=== PATIENT | male | born 1960 | race Caucasian/White ===

== ENCOUNTER 2018-08-13 00:33 | Outpatient (CLI) | payer OTHER, SELFPAY ==
[2018-08-13 10:58] LABS: CREATININE 1.16 mg/dL (0.70-1.30); Cholesterol 180 mg/dL (50-200); HDL Cholesterol 40 mg/dL (40-60); LDL CHOLESTEROL 125 mg/dL (<100); Potassium 4.3 mmol/L (3.5-5.1); Triglyceride 86 mg/dL (30-150)
[2018-08-15 04:37] LABS: Hemoglobin A1C 5.7 % (4.5-6.2)
== END 2018-08-13 00:53 ==
PROVIDERS: PCP Family Medicine; Visit Provider Family Medicine
DX: E78.5 Hyperlipidemia, unspecified (principal); E74.39 Other disorders of intestinal carbohydrate absorption; E83.42 Hypomagnesemia; I10 Essential (primary) hypertension
CPT/HCPCS: 36415; 80061; 83721; 82565; 83036; 83735; 84132

== ENCOUNTER 2019-06-23 08:57 | Emergency (ER) | payer OTHER, SELFPAY ==
[2019-06-23 08:58] VITALS: BP 138/85; PULSE 84; RESP 16; TEMP 36.7; O2SAT 97
--- NOTE | 2019-06-23 09:21 | W.ED.GENAD ---
Discharge Plan Disposition Patient Disposition: HOME Condition: Stable Discharge Details Chief Complaint: FlankPain Clinical Impression: Left flank pain Primary Care Provider: Ajay Zhu ED Provider: Susy Dean Home Meds and New Rx's Prescriptions: New methocarbamol [Robaxin-750] 750 mg tablet 750 mg PO QID PRN (Reason: pain) Qty: 10 RF: 0 Continued amlodipine 5 mg tablet 5 mg PO DAILY Qty: 90 RF: 4 spironolactone 25 mg tablet 25 mg PO DAILY Qty: 90 RF: 3 amoxicillin 875 mg tablet 875 mg PO BID Qty: 14 RF: 0 pantoprazole 40 mg tablet,delayed release (DR/EC) 40 mg PO DIRECTED RF: 0 hydrochlorothiazide 12.5 mg tablet 12.5 mg PO DAILY Qty: 90 RF: 3 lisinopril 30 mg tablet 30 mg PO DAILY Qty: 90 RF: 3 Discharge Instructions Instructions: Flank Pain (ED) Additional Instructions: Alternate Tylenol and Motrin as needed and directed for pain. Use [id number] Lidoderm patches as directed for pain. Take the muscle relaxers as needed and directed for pain. Call your primary care doctor's office today to schedule a follow-up appointment for reevaluation next week. Return to the emergency department if you develop any worsening or new concerning symptoms. Discharge Data Discharge Date/Time-TO BE ENTERED AT DEPARTURE: 06/23/19 11:51 Discharge Physician: Susy Dean Medical Decision Making 0900 -- 59-year-old male with a history of hypertension and GERD who presents with left-sided flank pain for the past 1 to 2 months, worse since this morning. He admits to an injury several weeks ago when she was hit by a hard object in his left flank at work but states he did not have pain in this area initially. He also states he had pain in this area 2 months ago while working outside. He states he also lifts frequent heavy objects. He states the pain is somewhat improved with moving and walking and after bowel movements. He denies fever, nausea, vomiting, urinary symptoms, diarrhea, leg pain or weakness, no cauda equina symptoms. Abdomen soft nontender. Left lateral abdomen and left lower backend developer to palp. No rash. No focal deficits. Differential diagnosis includes kidney stone, muscle strain, sciatica, spinal stenosis, arthritis, shingles. Will place an IV give a dose of Toradol, Lidoderm patch, screening labs, urinalysis and CT renal colic. 1125 --labs and imaging reviewed and unremarkable. Normal white blood cell count, normal electrolytes, normal lipase, negative urine, CT negative for acute findings. Patient denies any relief of his symptoms with meds. Patient states he does feel good to go home. Discussed with patient that his symptoms could be musculoskeletal including sprain/strain, spinal stenosis, sciatica, herniated disc or possibly shingles with rash that has not yet developed. We will send home with a prescription for muscle relaxers. He is advised to take ibuprofen 600 mg every 6 hours, alternate ice and heat, follow-up with his primary care doctor next week and to return to the ER with new or worsening symptoms. Medical Records Medical records reviewed: Yes I reviewed the patient's medical records. Imaging Data Radiologic Study: Radiologist's impression: CT RENAL COLIC WO CLINICAL HISTORY: L flank pain, r/o renal stone. TECHNIQUE: The examination was carried out according to the usual protocol. COMPARISON: No exams were available for comparison FINDINGS: Non-obstructing left nephrolithiasis is demonstrated. There is no evidence of hydronephrosis. There is no evidence of ureterectasis or ureterolithiasis. The right kidney is unremarkable. The adrenals are intact, the visualized portions of the liver and spleen appear unremarkable. There is no evidence of bowel obstruction and nothing to suggest an acute appendix. There is no evidence of free air or fluid in the intraperitoneal space. The bladder is unremarkable. Prostate is somewhat enlarged and contains small calcifications. No acute bony abnormality is evident. IMPRESSION: Nonobstructing left nephrolithiasis is demonstrated. There is no evidence of ureterectasis or ureterolithiasis. Lab Data Lab results reviewed: Yes I reviewed the patient's lab results. Labs: Laboratory Tests Range/Units 06/23/19 06/23/19 06/23/19 09:15 09:56 09:56 WBC (4.4-10.8) k/cumm 7.77 RBC (4.50-6.00) m/cumm 4.53 Hgb (13.5-17.5) g/dL 13.2 L Hct (40.0-50.0) % 38.0 L MCV (80-95) fL 83.9 MCH (27.0-33.0) pg 29.1 MCHC (32.0-36.0) g/dL 34.7 RDW (11.8-14.1) % 12.5 Plt Count (130-400) x1000/uL 266 MPV (8.0-11.0) fL 9.6 Immature Gran % 1.3 Neutrophils % 66.4 Lymphocytes % 23.9 Monocytes % 6.6 Eosinophils % 1.4 Basophils % 0.4 Absolute Neutrophils (1.2-6.7) k/cumm 5.16 Absolute Lymphocytes (1.2-3.4) k/cumm 1.86 Absolute Monocytes (0.11-0.7) k/cumm 0.51 Absolute Eosinophils (0.0-0.7) k/cumm 0.11 Absolute Basophils (0.0-0.2) k/cumm 0.03 Sodium Cancelled Potassium Cancelled Chloride Cancelled Carbon Dioxide Cancelled Anion Gap Cancelled BUN Cancelled Creatinine Cancelled Estimated GFR/1.73 m2 Cancelled Glucose Cancelled Calcium Cancelled Total Bilirubin Cancelled AST Cancelled ALT Cancelled Alkaline Phosphatase Cancelled Total Protein Cancelled Albumin Cancelled Lipase Cancelled Urine Color (Yellow) Yellow Urine Clarity (Clear) Clear Urine pH (5-8) 6.5 Ur Specific [place] (1.005-1.025) 1.015 Urine Protein (Negative) mg/dL Negative Urine Ketones (Negative) mg/dL Negative Urine Blood (Negative) Negative Urine Nitrite (Negative) Negative Urine Bilirubin (Negative) Negative Urine Urobilinogen (Up TO 0.2) EU/dL 0.2 Ur Leukocyte Esterase (Negative) Negative Urine Glucose (Negative) mg/dL Negative Range/Units 06/23/19 10:58 WBC (4.4-10.8) k/cumm RBC (4.50-6.00) m/cumm Hgb (13.5-17.5) g/dL Hct (40.0-50.0) % MCV (80-95) fL MCH (27.0-33.0) pg MCHC (32.0-36.0) g/dL RDW (11.8-14.1) % Plt Count (130-400) x1000/uL MPV (8.0-11.0) fL Immature Gran % Neutrophils % Lymphocytes % Monocytes % Eosinophils % Basophils % Absolute Neutrophils (1.2-6.7) k/cumm Absolute Lymphocytes (1.2-3.4) k/cumm Absolute Monocytes (0.11-0.7) k/cumm Absolute Eosinophils (0.0-0.7) k/cumm Absolute Basophils (0.0-0.2) k/cumm Sodium 139 Potassium 4.5 Chloride 105 Carbon Dioxide 24.4 Anion Gap 9.6 BUN 26 H Creatinine 1.22 Estimated GFR/1.73 m2 >= 60.00 Glucose 121 H Calcium 9.0 Total Bilirubin 0.4 AST 17 ALT 35 Alkaline Phosphatase 49 Total Protein 7.3 Albumin 3.8 Lipase 63 L Urine Color (Yellow) Urine Clarity (Clear) Urine pH (5-8) Ur Specific [place] (1.005-1.025) Urine Protein (Negative) mg/dL Urine Ketones (Negative) mg/dL Urine Blood (Negative) Urine Nitrite (Negative) Urine Bilirubin (Negative) Urine Urobilinogen (Up TO 0.2) EU/dL Ur Leukocyte Esterase (Negative) Urine Glucose (Negative) mg/dL HPI General Mode of arrival: ambulatory. Date/Time Provider Initiated Documentation: 06/23/19 09:01. Limitations to Documentation: no limitations. Information obtained by: patient. HPI Narrative: Patient is a 59-year-old male with a history of GERD and hypertension who presents with left lower back/flank pain for the past 3 weeks. He states he had similar pain occurring 2 months ago but this improved and then returned a few weeks ago. He does admit to an injury at work in which he was hit by a hard object to his left lower back but states he did not have any pain at that time and not for another 3 weeks. He states the pain is better when he is getting up and walking and with bowel movements. He denies any fever, nausea, vomiting, urinary symptoms, diarrhea, leg pain or weakness, saddle anesthesia, bowel or bladder incontinence, abdominal pain. He denies any rash to his left lower back. Related Data Home Medications Medication Instructions Recorded Confirmed hydrochlorothiazide 12.5 mg tablet 12.5 mg PO DAILY #90 tab-cap 12/16/18 06/23/19 lisinopril 30 mg tablet 30 mg PO DAILY #90 tab-cap 12/16/18 06/23/19 pantoprazole 40 mg tablet,delayed 40 mg PO DIRECTED tab-cap 12/16/18 06/23/19 release amlodipine 5 mg tablet 5 mg PO DAILY #90 tab-cap 06/21/19 06/23/19 amoxicillin 875 mg tablet 875 mg PO BID #14 tab 06/21/19 06/23/19 spironolactone 25 mg tablet 25 mg PO DAILY #90 tab-cap 06/21/19 06/23/19 methocarbamol [Robaxin-750] 750 mg PO QID PRN #10 tab 06/23/19 Previous Rx's Medication Instructions Recorded hydrochlorothiazide 12.5 mg tablet 12.5 mg PO DAILY #90 tab-cap 12/16/18 lisinopril 30 mg tablet 30 mg PO DAILY #90 tab-cap 12/16/18 amlodipine 5 mg tablet 5 mg PO DAILY #90 tab-cap 06/21/19 amoxicillin 875 mg tablet 875 mg PO BID #14 tab 06/21/19 spironolactone 25 mg tablet 25 mg PO DAILY #90 tab-cap 06/21/19 methocarbamol [Robaxin-750] 750 mg PO QID PRN #10 tab 06/23/19 Allergies Allergy/AdvReac Type Severity Reaction Status Date / Time erythromycin base AdvReac Nausea/vomi Unverified 06/23/19 09:06 ting General Stated Complaint: FlankPain LUKAS: 3 Review of Systems Review of Systems ROS Unobtainable: All systems reviewed & are unremarkable except as noted in HPI and below Constitutional Constitutional: Reports as per HPI, Denies chills and Denies fever(s) Eyes Eyes: Denies blurry vision ENT Ears, Nose, Mouth, and Throat: Denies dizziness, Denies sore throat and Denies throat swelling Cardiovascular Cardiovascular: Denies chest pain and Denies dyspnea Respiratory Respiratory: Denies cough and Denies dyspnea Gastrointestinal Gastrointestinal: Denies abdominal pain, Denies diarrhea and Denies vomiting Genitourinary Genitourinary: Denies hematuria, Denies dysuria and Reports flank pain Musculoskeletal Musculoskeletal: Reports back pain and Denies numbness Integumentary/Breasts Skin/Breast: Denies lesions and Denies rash Neurologic Neurologic: Denies dizziness, Denies focal weakness and Denies numbness Allergic/Immunologic Allergic/Immunologic: Denies throat swelling [facility] Medical History Gastroesophageal reflux disease with esophagitis (Inactive) Hypertension (Inactive) Surgical History Appendectomy Family History Mother Diabetes Essential hypertension Father , AGE 84 Essential hypertension Stroke Brother Diabetes Essential hypertension Sister No problems noted. Son No problems noted. Daughter No problems noted. Daughter No problems noted. Daughter No problems noted. Social History Smoking/Tobacco Use Status: Never Alcohol Intake: current Alcohol Intake frequency: holidays/special occasions only Alcohol type: beer Substance use type: does not use current occupation: LEADMAN Pets and animals: Yes Pets and animals: dog(s) Frequency: does not exercise Lisbeth/Hoahaoism: No preference Special lisbeth needs: No Do you feel safe at home: Yes Do you feel safe in your relationship?: Yes Exam Const General: cooperative, healthy appearing and no acute distress HENMT Head: normal to inspection Face and sinus: normal facial exam Eyes General: appearance normal, both eyes and all related structures EOM: EOM intact bilaterally Neck Neck: normal visual inspection and No submandibular swelling Lymphatic: no lymphadenopathy noted Chest Chest: normal inspection of the chest and no tenderness Resp Effort & Inspection: normal respiratory effort and able to speak in complete sentences Auscultation: clear to auscultation bilaterally Cardio Rate: regular rate Rhythm: regular rhythm GI Inspection: normal to inspection Palpation: soft, not firm, not rigid and tender (L lateral abdomen) Auscultation: normal bowel sounds Male General Exam: Yes normal external exam Scrotum: scrotum normal Testes: no testicular mass, no testicular swelling and no testicular tenderness Back/Spine/Pelvis Back: no CVA tenderness Thoracic/Lumbar Spine: thoracic and lumbar spine normal to inspection and paraspinal tenderness (L lumbar) Skin General skin exam: no rashes or lesions noted Neuro General: alert, awake and oriented x3 Cognition: normal cognition Speech: speech normal Motor: muscle tone normal throughout and strength 5/5 throughout Sensory Exam: no sensory deficits noted DTR's: Rt Patellar: 2+, Lt Patellar: 2+, Rt Ankle: 2+ and Lt Ankle: 2+ Plantar Reflexes: Equivocal: bilateral (Negative babinski b/l ) Extrem General: normal to inspection, full ROM, normal capillary refill, no calf tenderness bilaterally and no edema Other: B/L DP/PT pulses intact Psych Appearance: grossly normal Mental Status: mental status grossly normal Speech and Movement: speech and movement normal Affect: normal affect Course Vital Signs Vital signs: Vital Signs Temperature 98.1 F 06/23/19 08:58 Pulse 84 06/23/19 08:58 Respiratory Rate 16 06/23/19 08:58 Blood Pressure 138/85 06/23/19 08:58 Pulse Oximetry 97 06/23/19 08:58 Temperature 98.1 F 06/23/19 08:58 Temperature Source Skin 06/23/19 08:58 Pulse 84 06/23/19 08:58 Respiratory Rate 16 06/23/19 08:58 Respiratory Effort 06/23/19 09:10 Blood Pressure 138/85 06/23/19 08:58 Blood Pressure Position Sitting 06/23/19 08:58 Pulse Oximetry 97 06/23/19 08:58 Pain Level 8 06/23/19 08:58 Comment tylenol at 0400 with minimal relief 06/23/19 08:58
[2019-06-23 09:25] LABS: Bilirubin Negative (Negative); Blood Negative (Negative); Clarity Clear (Clear); Glucose Negative (Negative); Ketones Negative (Negative); Leukocyte Esterase Negative (Negative); Nitrite Negative (Negative); Specific Gravity 1.015 (1.005-1.025); Urobilinogen 0.2 EU/dL (Up TO 0.2); pH 6.5 (5-8)
--- NOTE | 2019-06-23 09:46 | DI.CT_ITS ---
EXAM: CT RENAL COLIC WO CLINICAL HISTORY: L flank pain, r/o renal stone. TECHNIQUE: The examination was carried out according to the usual protocol. COMPARISON: No exams were available for comparison FINDINGS: Non-obstructing left nephrolithiasis is demonstrated. There is no evidence of hydronephrosis. There is no evidence of ureterectasis or ureterolithiasis. The right kidney is unremarkable. The adrena ls are intact, the visualized portions of the liver and spleen appear unremarkable. There is no evid ence of bowel obstruction and nothing to suggest an acute appendix. There is no evidence of free air or fluid in the intraperitoneal space. The bladder is unremarkable. Prostate is somewhat enlarged and contains small calcifications. No acute bony abnormality is evident. IMPRESSION: Nonobstructing left nephrolithiasis is demonstrated. There is no evidence of ureterectasis or ureter olithiasis.
[2019-06-23] MEDS: Ketorolac 30 MG/ML VIAL IVP (10:16)
[2019-06-23] MEDS: Lidocaine 5% Patch 1 PATCH TP (10:17)
[2019-06-23 10:26] LABS: Absolute Basophil Count 0.03 k/cumm (0.0-0.2); Absolute Eosinophil Count 0.11 k/cumm (0.0-0.7); Absolute Lymphocyte Count 1.86 k/cumm (1.2-3.4); Absolute Monocyte Count 0.51 k/cumm (0.11-0.7); Absolute Neutrophil Count 5.16 k/cumm (1.2-6.7); Basophils % 0.4; Eosinophils % 1.4; HGB 13.2 g/dL (13.5-17.5); Immature Grans % 1.3; Lymphocytes % 23.9; Mean Corp. HGB Concentration 34.7 g/dL (32.0-36.0); Mean Corpuscular Hemoglobin 29.1 pg (27.0-33.0); Mean Corpuscular Volume 83.9 fL (80-95); Mean Platelet Volume 9.6 fL (8.0-11.0); Monocytes % 6.6; Neutrophils % 66.4; Platelet Count 266 x1000/uL (130-400); RBC 4.53 m/cumm (4.50-6.00); RBC Distribution Width 12.5 % (11.8-14.1); White Blood Cell Count 7.77 k/cumm (4.4-10.8)
[2019-06-23 11:14] LABS: ALT 35 U/L (16-63); AST 17 U/L (15-37); Albumin 3.8 g/dL (3.4-5.0); Alkaline Phosphatase 49 U/L (46-116); Anion Gap 9.6 mmol/L (3-11); BUN 26 mg/dL (7-18); Bilirubin, Total 0.4 mg/dL (0.2-1.0); CO2 24.4 mmol/L (21.0-32.0); CREATININE 1.22 mg/dL (0.70-1.30); Chloride 105 mmol/L (98-107); Glucose 121 mg/dL (70-100); Lipase 63 U/L (73-393); Potassium 4.5 mmol/L (3.5-5.1); Sodium 139 mmol/L (136-145); Total Protein 7.3 g/dL (6.4-8.2)
[2019-06-23 11:46] VITALS: BP 126/96; PULSE 63; RESP 18; TEMP 36.8; O2SAT 98
== END 2019-06-23 11:51 | disposition home or self-care (01) ==
PROVIDERS: Emergency Provider Physician Assistant; PCP Family Medicine
DX: R10.9 Unspecified abdominal pain (principal); I10 Essential (primary) hypertension
CPT/HCPCS: 36415; 80053; 83690; 96374; 99284; 74176; 81003; 85025; J1885

== ENCOUNTER 2019-08-01 01:52 | Outpatient (CLI) | payer OTHER, SELFPAY ==
[2019-08-01 11:21] LABS: Magnesium 1.8 mg/dL (1.8-2.4); Potassium 4.6 mmol/L (3.5-5.1)
[2019-08-02 15:21] LABS: PSA, Screening 2.9 ng/mL (0.0-3.5)
== END 2019-08-01 02:12 ==
PROVIDERS: PCP Family Medicine; Visit Provider Family Medicine
DX: I10 Essential (primary) hypertension (principal); Z12.5 Encounter for screening for malignant neoplasm of prostate
CPT/HCPCS: 36415; 84153; 83735; 84132

== ENCOUNTER 2019-08-18 09:51 | Day surgery (SDC) | payer OTHER, SELFPAY ==
[2019-08-18 10:16] VITALS: BP 115/78; PULSE 63; RESP 16; TEMP 36.7; O2SAT 97
[2019-08-18 10:23] VITALS: BP 115/78; PULSE 63; RESP 16; TEMP 36.7; O2SAT 97
[2019-08-18] MEDS: Lactated Ringers 1,000 ML 80 ML IV (10:35)
--- NOTE | 2019-08-18 10:58 | W.PM.DSUDISC ---
Discharge Plan Disposition Patient Disposition: HOME Condition: Good Discharge Details Reason For Visit: Colonoscopy Attending Provider: Aminta Marcelo Primary Care Provider: Ajay Zhu Home Meds and New Rx's Prescriptions: Continued amlodipine 5 mg tablet 5 mg PO DAILY Qty: 90 RF: 4 spironolactone 25 mg tablet 25 mg PO DAILY Qty: 90 RF: 3 pantoprazole 40 mg tablet,delayed release (DR/EC) 40 mg PO DIRECTED RF: 0 hydrochlorothiazide 12.5 mg tablet 12.5 mg PO DAILY Qty: 90 RF: 3 lisinopril 30 mg tablet 30 mg PO DAILY Qty: 90 RF: 3 Discharge Instructions Additional Instructions: Findings: Two small polyps were removed Follow up: Plan for a colonoscopy in 5 years pending biopsy results. Please call if you develop: fevers >101.5 Nausea or Vomiting Abdominal pain that is not transient DAY SURGERY UNIT POST COLONOSCOPY INSTRUCTIONS 1. Because there will be medication in your system for the next 24 hours, you may feel a little sleepy. Your coordination will be affected. Therefore: a. Do not drive or operate dangerous equipment for 24 hours. b. Do not drink alcohol beverages for 24 hours (not even beer). c. Plan to go home and rest for the day. 2. Generally there are no restrictions on your activity after a day or so has gone by, but you may feel a bit fatigued for a few days. 3 After you arrive home you may have a light meal and return to a normal diet as you can tolerate it without feeling sick to your stomach. 4. After surgery, you may feel pain or discomfort. This should be only transient, but if it persists please contact your doctor. 5. If there are any questions regarding the findings of your procedure, please feel free to contact your doctor. 6. If you are unable to contact your doctor with a problem, contact the hospital at [phone]. 7. Continue all your regular medications unless directed otherwise. I understand the above instructions and have no questions. Signature of Patient or Responsible Adult Escort Date/Time Name of Responsible Adult Escort Signature of Nurse Date/Time Stand Alone Forms: Steven Johnson (CANDACEU) Activity:: Activity as Tolerated Diet:: As Tolerated Discharge Orders Discharge Orders: Discharge Order (Routine); Ordered 08/18/19 Ordered By: Aminta Marcelo DS: Diagnosis Discharge Diagnosis (1) Colon polyps: Status: Acute
--- NOTE | 2019-08-18 11:22 | BOWEL_PTH ---
PATIENT: Amari Reddy LOC: [facility] U#:[id number] AGE/SX: 59/M ROOM: RE08/18/[address]: Aminta Marcelo MD : 1960 BED: DIS: 08/18/2019 SPEC #: [id number] RECD: 08/18/19 12:29 STATUS: SANDRA REQ #: [id number] GLYNN: 08/18/19 11:[address]: Aminta Marcelo DEPT: Surgical Specimen RECD BY: Kika Dowell ENTERED: 08/18/19 12:30 SP TYPE: Bowel OTHR DR: Ajay Zhu MD Tissues: 1 - BIOPSY BOWEL 2 - BIOPSY BOWEL Procedures: GROSS AND MICRO LEVEL 4 Comments: [id number]
[2019-08-18 12:15] VITALS: BP 112/72; PULSE 56; RESP 14; TEMP 36.3; O2SAT 95
--- NOTE | 2019-08-18 12:48 | COLE_ITS ---
DATE OF PROCEDURE: August 18, 2019 PREOPERATIVE DIAGNOSIS: Colon polyps. POSTOPERATIVE DIAGNOSIS: Colon polyps. PROCEDURE: Colonoscopy with cold forceps polypectomy. SURGEON: Aminta Marcelo M.D. ANESTHESIA: General. INDICATIONS: This is a 59-year-old man whose last colonoscopy at age 47 showed colon polyps. He pre sents for routine follow-up. PROCEDURE: He was placed in the left lateral decubitus position. Propofol was titrated to sedation. Digital rectal examination revealed no abnormalities. The scope was advanced to the cecum without difficulty. The ileocecal valve was briefly intubated and was normal. His prep was excellent. The scope was slowly withdrawn with a diminutive polyp identified in the mid ascending colon. This was r emoved with the cold forceps and sent to pathology. No abnormalities were seen throughout the transv erse colon. In the descending colon a diminutive polyp was removed with the cold forceps and sent to pathology. No other abnormalities were seen throughout the sigmoid colon or rectum, including on re troflex view. He tolerated the procedure well and was stable to recovery. If the polyps are adenomatous, he will need a colonoscopy again in five years. cc: Ajay Zhu M.D.
== END 2019-08-18 12:32 | disposition home or self-care (01) ==
PROVIDERS: PCP Family Medicine; Visit Provider Surgery
PROC: 0DJD8ZZ Inspection of Lower Intestinal Tract, Via Natural or Artificial Opening Endoscopic (ICD-10-PCS; CPT 45378; principal; 2019-08-18 11:00)
DX: Z12.11 Encounter for screening for malignant neoplasm of colon (principal); D12.2 Benign neoplasm of ascending colon; D12.4 Benign neoplasm of descending colon; Z87.19 Personal history of other diseases of the digestive system; I10 Essential (primary) hypertension
CPT/HCPCS: 45380; 88305

== ENCOUNTER 2020-09-04 03:18 | Outpatient (CLI) | payer OTHER, SELFPAY ==
[2020-09-04 13:01] LABS: Anion Gap 7.7 mmol/L (3-11); BUN 35 mg/dL (7-18); CO2 26.3 mmol/L (21.0-32.0); Calcium 8.9 mg/dL (8.5-10.1); Calculated LDL 118 mg/dL (<100); Chloride 104 mmol/L (98-107); Cholesterol 176 mg/dL (<200); Estimated GFR 44.62 (mL/min/1.73m2); Glucose 108 mg/dL (74-106); HDL Cholesterol 40 mg/dL (40-60); Potassium 4.8 mmol/L (3.5-5.1); Sodium 138 mmol/L (136-145); Triglyceride 90 mg/dL (<150)
[2020-09-04 16:10] LABS: Rheumatoid Factor <8.6 IU/mL (<12.0)
[2020-09-04 18:54] LABS: PSA, Screening 3.3 ng/mL (0.0-3.5)
== END 2020-09-04 03:38 ==
PROVIDERS: PCP Family Medicine; Visit Provider Family Medicine
DX: Z00.00 Encounter for general adult medical examination without abnormal findings (principal); I10 Essential (primary) hypertension; E78.5 Hyperlipidemia, unspecified; E87.1 Hypo-osmolality and hyponatremia; R73.9 Hyperglycemia, unspecified; M19.041 Primary osteoarthritis, right hand; Z12.5 Encounter for screening for malignant neoplasm of prostate; M19.042 Primary osteoarthritis, left hand
CPT/HCPCS: 36415; 80048; 80061; 84153; 83036; 86431

== ENCOUNTER 2020-11-06 02:20 | Outpatient (CLI) | payer OTHER, SELFPAY ==
[2020-11-06 12:46] LABS: Anion Gap 8.6 mmol/L (3-11); BUN 33 mg/dL (7-18); CO2 26.4 mmol/L (21.0-32.0); CREATININE 1.5 mg/dL (0.70-1.30); Calcium 9.3 mg/dL (8.5-10.1); Chloride 103 mmol/L (98-107); Estimated GFR 48.07 (mL/min/1.73m2); Glucose 110 mg/dL (74-106); Potassium 4.8 mmol/L (3.5-5.1); Sodium 138 mmol/L (136-145)
== END 2020-11-06 02:21 | disposition home or self-care (01) ==
LOC: LOS 02:21
PROVIDERS: PCP Family Medicine; Visit Provider Family Medicine
DX: E87.1 Hypo-osmolality and hyponatremia (principal); N28.9 Disorder of kidney and ureter, unspecified
CPT/HCPCS: 36415; 80048

== ENCOUNTER 2021-07-08 16:44 | Outpatient (REF) | payer OTHER, SELFPAY ==
[2021-07-08 20:59] LABS: Anion Gap 10.2 mmol/L (3-11); BUN 33 mg/dL (7-18); CO2 24.8 mmol/L (21.0-32.0); CREATININE 1.5 mg/dL (0.70-1.30); Calcium 9.2 mg/dL (8.5-10.1); Chloride 103 mmol/L (98-107); Glucose 81 mg/dL (74-106); Potassium 4.4 mmol/L (3.5-5.1); Sodium 138 mmol/L (136-145)
[2021-07-08 21:32] LABS: Hemoglobin A1C 6.2 % (<5.7)
== END 2021-07-08 16:45 | disposition home or self-care (01) ==
LOC: LBN 16:44
PROVIDERS: PCP Family Medicine; Visit Provider Family Medicine
DX: R73.9 Hyperglycemia, unspecified (principal)
CPT/HCPCS: 80048; 83036

== ENCOUNTER 2022-01-02 01:51 | Outpatient (CLI) | payer OTHER, SELFPAY | END 2022-01-02 01:52 | disposition home or self-care (01) | LOC: LBO 01:51 | PROVIDERS: PCP Family Medicine; Visit Provider Family Medicine ==

== ENCOUNTER 2022-01-06 05:19 | Outpatient (CLI) | payer OTHER, SELFPAY ==
[2022-01-06 13:13] LABS: Calculated LDL 99 mg/dL (<100); Cholesterol 158 mg/dL (<200); HDL Cholesterol 45 mg/dL (40-60); Magnesium 1.9 mg/dL (1.8-2.4); Triglyceride 74 mg/dL (<150); Vitamin B12 823 pg/mL (193-986)
== END 2022-01-06 05:20 | disposition home or self-care (01) ==
LOC: LOS 05:19
PROVIDERS: PCP Family Medicine; Visit Provider Family Medicine
DX: D64.9 Anemia, unspecified (principal); E78.5 Hyperlipidemia, unspecified; E83.42 Hypomagnesemia; Z12.5 Encounter for screening for malignant neoplasm of prostate
CPT/HCPCS: 36415; 80061; 84153; 82607; 83735

== ENCOUNTER 2022-04-22 03:17 | Outpatient (CLI) | payer OTHER, SELFPAY ==
[2022-04-22 15:33] LABS: Hemoglobin A1C 6.4 % (<5.7)
[2022-04-22 17:16] LABS: Potassium 4.3 mmol/L (3.5-5.1)
[2022-04-23 11:14] LABS: Free PSA/PSA Ratio 0.13 ratio
== END 2022-04-22 03:18 | disposition home or self-care (01) ==
LOC: LBO 03:17
PROVIDERS: PCP Family Medicine; Visit Provider Nurse Practitioner Gerontology
DX: N13.8 Other obstructive and reflux uropathy (principal); N40.1 Benign prostatic hyperplasia with lower urinary tract symptoms; R97.20 Elevated prostate specific antigen [PSA]; I10 Essential (primary) hypertension; R73.9 Hyperglycemia, unspecified
CPT/HCPCS: 36415; 83036; 84132; 84154

== ENCOUNTER 2022-08-04 09:33 | Outpatient (REF) | payer OTHER, SELFPAY ==
--- NOTE | 2022-08-04 08:45 | SKI_PTH ---
PATIENT: Amari Reddy LOC: [facility]#:[id number] AGE/SX: 62/M ROOM: RE08/04/[address]: Te Menchaca MD : 1960 BED: DIS: 08/04/2022 SPEC #: [id number] RECD: 08/04/22 17:05 STATUS: SANDRA REQ #: [id number] GLYNN: 08/04/22 08:[address]: Te Menchaca DEPT: Surgical Specimen RECD BY: Kika Dowell ENTERED: 08/04/22 17:06 SP TYPE: TOMASZ GERBER DR: Ajay Zhu MD Tissues: 1 - SKIN BIOPSY(SHAVE/PUNCH) 2 - SKIN BIOPSY(SHAVE/PUNCH) Procedures: SKIN LEVEL 4 Comments: [id number]
== END 2022-08-04 09:34 | disposition home or self-care (01) ==
LOC: LBN 09:33
PROVIDERS: PCP Family Medicine; Visit Provider Otolaryngology
DX: D22.39 Melanocytic nevi of other parts of face (principal)
CPT/HCPCS: 88305

== ENCOUNTER 2022-12-24 02:04 | Outpatient (CLI) | payer OTHER, SELFPAY ==
[2022-12-24 12:20] LABS: Anion Gap 7.5 mmol/L (3-11); BUN 26 mg/dL (7-18); CO2 26.5 mmol/L (21.0-32.0); CREATININE 1.5 mg/dL (0.70-1.30); Chloride 101 mmol/L (98-107); Estimated GFR 52.97 (mL/min/1.73m2); Glucose 123 mg/dL (74-106); Potassium 4.3 mmol/L (3.5-5.1); Sodium 135 mmol/L (136-145); Uric Acid 6.2 mg/dL (3.5-7.2)
[2022-12-24 12:36] LABS: Calculated LDL 93 mg/dL (<100); Cholesterol 152 mg/dL (<200); HDL Cholesterol 48 mg/dL (40-60); Triglyceride 59 mg/dL (<150)
[2022-12-24 22:57] LABS: PSA, Screening 5.1 ng/mL (<=4.5)
== END 2022-12-24 02:05 | disposition home or self-care (01) ==
LOC: LOS 02:04
PROVIDERS: Nurse Practitioner Gerontology; PCP Family Medicine; Visit Provider Family Medicine
DX: E78.5 Hyperlipidemia, unspecified (principal); M10.9 Gout, unspecified; N40.1 Benign prostatic hyperplasia with lower urinary tract symptoms; N13.8 Other obstructive and reflux uropathy; R97.20 Elevated prostate specific antigen [PSA]; E87.1 Hypo-osmolality and hyponatremia; Z12.5 Encounter for screening for malignant neoplasm of prostate
CPT/HCPCS: 36415; 80048; 80061; 84153; 84550

== ENCOUNTER 2023-09-17 01:38 | Outpatient (CLI) | payer OTHER, SELFPAY ==
[2023-09-17 12:30] LABS: BUN 31 mg/dL (7-18); CREATININE 1.5 mg/dL (0.70-1.30); Calcium 9.5 mg/dL (8.5-10.1); Chloride 101 mmol/L (98-107); Estimated GFR 52.64 (mL/min/1.73m2); Glucose 122 mg/dL (74-106); Potassium 4.2 mmol/L (3.5-5.1); Sodium 136 mmol/L (136-145); Uric Acid 7.4 mg/dL (3.5-7.2)
[2023-09-17 12:34] LABS: Hemoglobin A1C 6.3 % (<5.7)
[2023-09-17 19:09] LABS: PSA, Screening 6.6 ng/mL (<=4.5)
== END 2023-09-17 01:39 | disposition home or self-care (01) ==
LOC: LOS 01:42
PROVIDERS: Nurse Practitioner Gerontology; PCP Family Medicine; Visit Provider Family Medicine
DX: N13.8 Other obstructive and reflux uropathy (principal); N40.1 Benign prostatic hyperplasia with lower urinary tract symptoms; R97.20 Elevated prostate specific antigen [PSA]; M10.9 Gout, unspecified; E87.1 Hypo-osmolality and hyponatremia; E11.51 Type 2 diabetes mellitus with diabetic peripheral angiopathy without gangrene
CPT/HCPCS: 36415; 80048; 84153; 83036; 84550

== ENCOUNTER 2023-10-29 08:00 | Day surgery (SDC) | payer OTHER, SELFPAY ==
--- NOTE | 2023-10-28 14:42 | COLE_ITS ---
Date of service: 10/29/23 Time of Service: 09:34 Colonoscopy Report Date of procedure: 10/29/23 Pre-op diagnosis general: 2019 villous descending/TA ascending Post-op diagnosis procedure note: other (polyp) Surgeon: Citlaly Lowe Anesthesia Type: General:No Airway Estimated blood loss (mL): 1 Pathology: other Complications: None Disposition: same day Prep: Miralax/Dulcolax Retraction Time: 13 Procedure Description: After informed consent was obtained the patient was taken to the procedure room and placed in a left decubitous position. Monitors were applied and a time out was done. The patients name, date of , procedure, allergies to medications and metal in their body was reviewed. The patient was then sedated. Once sedated and comfortable a rectal exam was done. External exam was normal. Internal exam revealed a normal sphincter tone and no palpable masses. The prostate w/out masses. The scope was then introduced and retrofelexed. No internal hemorrhoids were identified. The scope was then advanced to the cecum w/out difficulty. The TI and appendiceal orifice were identified. The scope was then slowly retracted over 13 minutes back into the rectum. She has a flat 0.5 cm polyp at 80 cm. This is removed with a cold biting forcep. All specimen is retrieved and no bleeding is noted. There are no other polyps, AVMs, or diverticula visualized today. The mucosa is pink and healthy with a normal vascular pattern. The scope was removed and the patient was woken up and taken back to Same day surgery in stable condition. The patient tolerated the procedure well and there were no immediate complications. Follow up: The patient should follow up in 5 yrs, path pd, unless they develop changes in bowel habits or other new gastrointestinal complaints. [place] Bowel Prep [place] Bowel Prep Right Colon: 3 Left Colon: 3 Transverse Colon: 3 Total Score: 9
--- NOTE | 2023-10-28 14:43 | PDOC.DSDIS_ITS ---
Date of service: 10/29/23 Time of Service: 10:44 Discharge Plan Disposition Patient Disposition: Home Condition: Good Discharge Details Reason For Visit: colonscope Attending Provider: Citlaly Lowe Primary Care Provider: Ajay Zhu Home Meds and New Rx's Prescriptions: Continued metronidazole [Metrogel] 1 % gel 1 applic topical DAILY 56 Days Qty: 60 4RF Rx Instructions: apply to involved area on nose and face pantoprazole 40 mg tablet,delayed release (DR/EC) 40 mg PO DAILY Qty: 90 3RF spironolactone 25 mg tablet 25 mg PO DAILY Qty: 90 3RF amlodipine 5 mg tablet 5 mg PO DAILY Qty: 90 4RF doxycycline hyclate 100 mg tablet 100 mg PO BID PRN (Reason: acne) fluticasone propionate [Flonase Allergy Relief] 50 mcg/actuation spray,suspension 1 spray intranasal BID Qty: 16 0RF Rx Instructions: administer into each nostril albuterol sulfate 90 mcg/actuation HFA aerosol inhaler 2 inh inhalation Q4H PRN (Reason: shortness of breath or wheezing) Qty: 18 0RF tadalafil 5 mg tablet 5 - 20 mg PO DAILY PRN (Reason: sexual activity) Qty: 90 3RF tamsulosin [Flomax] 0.4 mg capsule 0.4 mg PO DAILY Qty: 90 3RF Discontinued bisacodyl [Dulcolax (bisacodyl)] 5 mg tablet,delayed release (DR/EC) 5 mg PO ONCE Qty: 4 0RF Rx Instructions: Colonoscopy Bowel Prep- Per Instructions polyethylene glycol 3350 17 gram/dose powder 238 g PO ONCE Qty: 238 0RF Rx Instructions: Colonoscopy Bowel Prep- Per Instructions Discharge Instructions Additional Instructions: [facility] Colonoscopy Post- Op Instructions Instructions for Everyone who is given Anesthesia: For your safety, please do the following for the next twenty-four (24) hours: *Do Not operate a motor vehicle (car, truck, motorcycle, etc.) *Do Not drink alcoholic beverages or use any recreational drugs for the first 24 hours or while taking pain medications. The medications in your body may have a reaction that can be dangerous. *Do Not make any important decisions or sign any important papers. Findings: small polyp x1 Follow up: -Office will send you a letter in 2 to 3 weeks time with the results of the biopsies and when we want to repeat the colonoscopy, most likely 5 years time. 1. No lifting over 20 pounds or strenuous activity for the first 24 hours after your procedure. After 24 hours there are no restrictions on your activity but you may feel fatigued for a few days. 2. After you arrive home you may have a light meal and return to your normal diet as you can tolerate it without feeling sick to your stomach. 3. You may have a bloated, gaseous feeling in your belly (abdomen) after a colonoscopy. Passing gas and belching will help. Walking or lying down on your left side with your knees flexed may relieve the discomfort. Call the office at [phone] (Office) or [phone] (Hospital) right away if you notice any of the following: a.Vomiting of blood or ?coffee ground stools?. b.Rectal bleeding 1Tbsp, blood clots or continuous bleeding. c.Severe belly (abdominal) pain. d.A hard distended belly (abdomen) and an inability to pass gas. 4. Please don?t expect to have a normal BM (bowel movement) for 2-3 days after your procedure. 5. If there are questions regarding the findings of your procedure, please contact your doctor 6. If you are unable to contact your doctor with a problem, contact the hospital at [phone]. 7. Continue all your regular medications unless directed otherwise. I understand the above instructions and have no questions. Signature of Patient or Adult Escort Name of Responsible Adult Escort Signature of Nurse Date/Time Stand Alone Forms: Anesthesia Discharge Inst., tSeven Johnson ([facility]U) Activity:: see above Diet:: see above Discharge Orders Discharge Orders: Discharge Order (Routine); Ordered 10/29/23 Ordered By: Citlaly Lowe DS: Diagnosis Discharge Diagnosis (1) Villous adenoma of right colon: Status: Acute (2) Overweight: Status: Acute (3) Essential hypertension: Status: Acute (4) Prediabetes: Status: Acute (5) BPH w urinary obs/LUTS: Status: Acute (6) Anemia: Status: Acute (7) Tubulovillous adenoma: Status: Acute Asessment and Plan: The patient is seen and examined after their colonoscopy.? The patient has been able to pass gas.? They are not having abdominal pain.? They have been able to tolerate liquids and a snack.? They do not have any nausea or vomiting.? They are not having any chest pain or shortness of breath.??? They are not having any rectal bleeding. Their vital signs have been stable-see nursing notes. We discussed findings during their colonoscopy, and any biopsies that were done/polyps that were removed. The patient will be sent a letter with any biopsy results, and when to repeat the colonoscopy.-see discharge instructions. Patient was given explicit instructions to follow-up regarding colonoscopy-refer to discharge instructions.? We reviewed resumption of medications. Patient verbalized understanding and discharged in stable and satisfactory condition- See nursing notes. (8) Gastroesophageal reflux disease with esophagitis: (9) Hypertension:
[2023-10-29 08:05] VITALS: BP 126/90; PULSE 75; RESP 18; TEMP 36.5; O2SAT 97
[2023-10-29] MEDS: Lactated Ringers 1,000 ML 80 ML IV (08:39)
--- NOTE | 2023-10-29 08:45 | W.ANESPRE ---
General Info Date of Service Date Performed: 10/29/23 Height: 5 ft 4 in Weight: 83.1 kg Body Mass Index (BMI): 31.4 Surgical Procedure: Operation Date: 10/29/23 09:05 Proposed Procedure Side Surgeon sudhir Lowe, DO Meds Allergies and Home Medications Allergies Allergy/AdvReac Type Severity Reaction Status Date / Time erythromycin base AdvReac Nausea/vomi Verified 10/29/23 08:25 ting Home Medication Medication Instructions Recorded metronidazole 1 % topical gel 1 applic topical DAILY 8 weeks #60 02/02/22 (Metrogel) grams albuterol sulfate 90 mcg/actuation 2 inh inhalation Q4H PRN shortness 12/28/22 aerosol inhaler of breath or wheezing #18 grams fluticasone propionate 50 1 spray intranasal BID #16 grams 12/28/22 mcg/actuation nasal spray,suspension (Flonase Allergy Relief) tadalafil 5 mg tablet 5 - 20 mg (1 - 4 x 5 mg) PO DAILY 04/23/23 PRN sexual activity #90 tabs tamsulosin 0.4 mg capsule (Flomax) 0.4 mg PO DAILY #90 caps 07/05/23 amlodipine 5 mg tablet 5 mg PO DAILY #90 tab-caps 09/09/23 pantoprazole 40 mg tablet,delayed 40 mg PO DAILY #90 tab-caps 09/09/23 release spironolactone 25 mg tablet 25 mg PO DAILY #90 tab-caps 09/09/23 doxycycline hyclate 100 mg tablet 100 mg PO BID PRN acne 10/14/23 Current Visit Medications: Current Medications Generic Name Dose Route Start Last Admin Trade Name Freq PRN Reason Stop Dose Admin Ringer's Solution 1,000 mls @ 80 mls/hr 10/29/23 06:00 10/29/23 08:39 IV 10/29/23 23:59 80 mls/hr INFUSION JARAD Administration IV Miscellaneous Supplies 1 each 10/29/23 06:00 Iv Access IV 10/29/23 23:59 DIRECTED JARAD Ondansetron HCl 4 mg 10/29/23 02:49 Ondansetron 4 Mg/2 Ml Vial IVP 11/28/23 02:48 Q4H PRN PRN Nausea / Vomiting Sodium Chloride 0 ml 10/29/23 06:00 Normal Saline Flush 10 Ml Syr IV 10/29/23 23:59 PRN PRN Sodium Chloride 0 ml 10/29/23 06:00 Normal Saline 10 Ml Vial IJ 10/29/23 23:59 DIRECTED PRN Sterile Water 0 ml 10/29/23 06:00 Water,Injection,Sterile 10 Ml Vial IJ 10/29/23 23:59 DIRECTED PRN PFSH Active Problems Active Problems: Problem Status Onset Code Villous adenoma of right colon D37.4 Tubulovillous adenoma D36.9 Erectile dysfunction N52.9 Prediabetes R73.03 Skin lesion of face L98.9 Rosacea L71.9 BPH w urinary obs/LUTS N40.1, N13.8 Elevated PSA R97.20 Cough R05.9 Bleeding from the nose R04.0 Nose cellulitis J34.0 Allergic rhinitis J30.9 Overweight E66.3 Well adult exam Z00.00 Facial rash R21 Dizziness R42 Renal insufficiency N28.9 Joint stiffness of hand Anemia D64.9 Essential hypertension I10 Chest pain R07.9 Sinusitis J32.9 Abdominal pain, left lateral R10.9 Left nephrolithiasis N20.0 Medical History Medical History Hypertension Gastroesophageal reflux disease with esophagitis Surgical History Surgical History History of esophagogastroduodenoscopy (EGD) History of colonoscopy 08/31 - tubular adenoma x1. Tubulovillous adenoma x1 Appendectomy Tobacco Smoking/Tobacco Use Status: Never Passive smoking exposure: Yes Second hand exposure: Yes Alcohol Alcohol Intake: current Alcohol intake frequency: holidays/special occasions only Alcohol type: beer Substance Use Substance use: Never Substance use type: does not use Vital Signs and Lab Results Vital Signs Most Recent Vital Signs in EMR: Most Recent Vital Signs Temp Pulse Resp BP Pulse Ox 36.5 C 75 18 126/90 97 10/29/23 08:05 10/29/23 08:05 10/29/23 08:05 10/29/23 08:05 10/29/23 08:05 Lab Results Blood Type / Crossmatch: No Data to Display Complete Blood Count: No Data to Display Complete Metabolic Panel: No Data to Display Liver Function Panel: No Data to Display Coagulation Panel: No Data to Display Cardiac Panel: No Data to Display Arterial Blood Gas: No Data to Display Venous Blood Gas: No Data to Display Pancreas Panel: No Data to Display Thyroid Panel: No Data to Display Infectious Disease: No Data to Display Blood Cultures: No Data to Display Toxicology Panel: No Data to Display Anesthesia Assessment and Plan Anesthesia History Personal History: No History of Anesthesia Complications Family History: No Family History of Anesthesia Complications Exercise Tolerance Exercise Tolerance: Metabolic Equivalents>4 Pertinent Negatives Pertinent Negatives: No Symptoms of GERD Cardiac & Pulmonary Exam Cardiac Exam: Normal S1/S2 Heart Sounds Pulmonary Exam: Clear Bilateral Breath Sounds Implantable Cardiac Device Does patient have a Pacemaker or an ICD?: No Airway Exam Known Difficult Airway: No Mallampati Class: 1 Mouth Opening: Normal (> 3cm) Thyromental Distance: Less than 3 cm Neck Range of Motion: Full ROM Neck Circumference: Thick Teeth Condition: Normal Dentition ASA Classification ASA Score: ASA 2 Emergency Case?: No NPO Status NPO Status: NPO Clears >2 hours, Solids >8 hours Anesthesia Plan Resuscitation Status: Full Code Anesthesia Technique: General Anesthesia Airway Planned: Natural Airway Monitors Used: Standard Monitors
[2023-10-29 08:46] VITALS: BMI 31.4
--- NOTE | 2023-10-29 09:13 | BOWEL_PTH ---
PATIENT: Amari Reddy LOC: [facility] U#:[id number] AGE/SX: 63/M ROOM: RE10/29/[address]: Citlaly Lowe : 1960 BED: DIS: 10/29/2023 SPEC #: [id number] RECD: 10/29/23 12:22 STATUS: SANDRA REQ #: [id number] GLYNN: 10/29/23 09:[address]: Citlaly Lowe DEPT: Surgical Specimen RECD BY: Kika Dowell ENTERED: 10/29/23 12:23 SP TYPE: Bowel OTHR DR: Ajay Zhu MD Tissues: 1 - BIOPSY BOWEL Procedures: GROSS AND MICRO LEVEL 4 Comments: [id number]
[2023-10-29 09:35] VITALS: BP 104/76; PULSE 65; RESP 16; TEMP 36.6; O2SAT 96
[2023-10-29 09:51] VITALS: BP 109/80; PULSE 54; RESP 16; TEMP 36.6; O2SAT 97
--- NOTE | 2023-10-29 10:12 | W.ANESPOSTOP ---
Postoperative Evaluation Date, Time and Location Date Performed: 10/29/23 Time Performed: 08:00 Patient Location: Day [facility] Unit Vital Signs Most Recent Imported Vital Signs: Most Recent Vital Signs Temp Pulse Resp BP Pulse Ox 36.6 C 54 L 16 109/80 97 10/29/23 09:51 10/29/23 09:51 10/29/23 09:51 10/29/23 09:51 10/29/23 09:51 Assessment Mental Status: Awake (Alert & Oriented to Patient Baseline) Airway and Respiratory Function: Patent airway with normal (patient baseline) respiratory exam Cardiovascular Function: Hemodynamically Stable Hydration Status: Adequately Hydrated Nausea & Vomiting: No Nausea or Vomiting Pain: Pt. Denies Any Pain Peripheral Nerve Block: Patient did not receive a nerve block
== END 2023-10-29 10:55 | disposition home or self-care (01) ==
LOC: SUR 08:01
PROVIDERS: PCP Family Medicine; Visit Provider Surgery
PROC: 0DJD8ZZ Inspection of Lower Intestinal Tract, Via Natural or Artificial Opening Endoscopic (ICD-10-PCS; CPT 45378; principal; 2023-10-29 09:00)
DX: Z12.11 Encounter for screening for malignant neoplasm of colon (principal); Z86.010 Personal history of colon polyps; D12.4 Benign neoplasm of descending colon
CPT/HCPCS: 45380; 88305; J2704

== ENCOUNTER 2024-05-19 01:15 | Outpatient (CLI) | payer OTHER, SELFPAY ==
[2024-05-19 12:29] LABS: CREATININE 1.3 mg/dL (0.70-1.30); Estimated GFR 62.11 (mL/min/1.73m2)
[2024-05-19 12:53] LABS: Hemoglobin A1C 6.2 % (<5.7)
[2024-05-19 18:32] LABS: PSA, Diagnostic 7.2 ng/mL (<=4.5)
== END 2024-05-19 01:16 | disposition home or self-care (01) ==
LOC: LOS 01:15
PROVIDERS: PCP Family Medicine; Visit Provider Nurse Practitioner Gerontology
DX: M10.9 Gout, unspecified (principal); E11.51 Type 2 diabetes mellitus with diabetic peripheral angiopathy without gangrene; I70.209 Unspecified atherosclerosis of native arteries of extremities, unspecified extremity; I10 Essential (primary) hypertension; R97.20 Elevated prostate specific antigen [PSA]; N40.1 Benign prostatic hyperplasia with lower urinary tract symptoms; N13.8 Other obstructive and reflux uropathy
CPT/HCPCS: 36415; 82565; 83036; 84153; 84550

== ENCOUNTER 2024-10-04 00:34 | Outpatient (CLI) | payer OTHER, SELFPAY ==
--- NOTE | 2024-10-04 07:15 | DI.RAD_ITS ---
Exam(s) XR FOOT RT COMPLETE EXAM: XR FOOT RT COMPLETE CLINICAL HISTORY: rt great toe pain,[id number]. TECHNIQUE: 2D digital imaging was performed. Three views. COMPARISON: No exams were available for comparison FINDINGS: BONES: No acute fracture is present. No bony destructive lesion is seen. JOINTS: No dislocation present. Mild degenerative changes of the 1st MTP joint. No hallux valgus. A little degenerative changes elsewhere. High plantar arch. SOFT TISSUE: Normal. IMPRESSION: Mild degenerative changes of the 1st MTP joint DATA REPOSITORY: RADIATION DOSE DELIVERED:
== END 2024-10-04 00:54 ==
LOC: DI 00:34
PROVIDERS: PCP Family Medicine; Visit Provider Family Medicine
DX: M79.674 Pain in right toe(s) (principal)
CPT/HCPCS: 73630

== ENCOUNTER 2024-10-10 03:14 | Outpatient (CLI) | payer OTHER, SELFPAY ==
[2024-10-10 12:42] LABS: Anion Gap 7.5 mmol/L (3-11); BUN 29 mg/dL (7-18); CO2 24.5 mmol/L (21.0-32.0); CREATININE 1.4 mg/dL (0.70-1.30); Calcium 9.6 mg/dL (8.5-10.1); Calculated LDL 106 mg/dL (<100); Chloride 104 mmol/L (98-107); Cholesterol 173 mg/dL (<200); Estimated GFR 56.83 (mL/min/1.73m2); Glucose 114 mg/dL (74-106); HDL Cholesterol 54 mg/dL (40-60); Magnesium 1.8 mg/dL (1.8-2.4); Sodium 136 mmol/L (136-145); Triglyceride 67 mg/dL (<150)
[2024-10-10 12:56] LABS: Creatine Kinase 115 U/L (39-308)
[2024-10-10 12:57] LABS: Hemoglobin A1C 6.1 % (<5.7)
== END 2024-10-10 03:15 | disposition home or self-care (01) ==
LOC: LOS 03:14
PROVIDERS: PCP Family Medicine; Visit Provider Family Medicine
DX: R73.9 Hyperglycemia, unspecified (principal); E78.5 Hyperlipidemia, unspecified; E87.1 Hypo-osmolality and hyponatremia; E83.42 Hypomagnesemia; M79.10 Myalgia, unspecified site
CPT/HCPCS: 36415; 80048; 80061; 82550; 83036; 83735

== ENCOUNTER 2025-04-02 16:56 | Outpatient (CLI) | payer OTHER, SELFPAY ==
[2025-04-03 18:26] LABS: PSA, Screening 6.9 ng/mL (<=4.5)
== END 2025-04-02 16:57 | disposition home or self-care (01) ==
LOC: LBO 16:56
PROVIDERS: PCP Family Medicine; Visit Provider Nurse Practitioner Gerontology
DX: R39.9 Unspecified symptoms and signs involving the genitourinary system (principal); N40.1 Benign prostatic hyperplasia with lower urinary tract symptoms; N13.8 Other obstructive and reflux uropathy; R97.20 Elevated prostate specific antigen [PSA]
CPT/HCPCS: 36415; 84153